=== PATIENT | male | born 1980 | race Caucasian/White ===

== ENCOUNTER 2020-12-27 09:02 | Emergency (ER) | payer MEDICARE, MEDICAID, SELFPAY ==
[2020-12-27 09:02] VITALS: BP 140/89; PULSE 75; RESP 18; TEMP 36.4; O2SAT 97; BMI 22.3
--- NOTE | 2020-12-27 09:30 | W.ED.ALCOHOL ---
HPI - Alcohol General: Chief Complaint: Alcohol Stated Complaint: DEPRESSION, ETOH Time Seen by Provider: 12/27/20 09:05 History of Present Illness: HPI narrative: 40-year-old male who was acutely intoxicated. Family called EMS had him brought in for depression and chronic alcohol use patient denies drinking regularly states he had 4 shots late last night none this morning. Clinically he has obvious signs of acute intoxication he is slurring his words is significant nystagmus. Family made comments to EMS about the patient needing to be evaluated for suicidal ideation. Patient denies this to EMS to the triage nurse to the staff nurse who is taking care of him as well as to myself. After conversation patient states he really does not need to or want to be seen for anything. See notes below. Associated symptoms: Deny abdominal pain, hematemesis, melena, nausea or vomiting Review of Systems Const: Denies: fever(s), chills, body aches, change in appetite, fatigue or malaise ENMT: Denies: throat pain, ear or mastoid pain, nasal discharge or nasal congestion Card: Denies: chest pain, edema, dyspnea on exertion or orthopnea Resp: Denies: dyspnea, productive cough or non-productive cough GI: Denies: abdominal pain, nausea, vomiting, hematemesis, coffee ground emesis, diarrhea, constipation, bloating, hematochezia or melena : Denies: flank pain, dysuria, urinary frequency or urinary urgency Skin/Breast: Denies: rash or pruritus Physical Exam Const: COMMON NORMALS: no acute distress GENERAL APPEARANCE: cooperative and comfortable ORIENTATION/CONSCIOUSNESS: Yes awake, Yes oriented to person, Yes oriented to place and Yes oriented to time HENMT: COMMON NORMALS: normocephalic, atraumatic and hearing grossly normal bilaterally HEAD & SCALP: normocephalic and atraumatic Eye: COMMON NORMALS: Equal, round and reactive pupils present, conjunctivae normal and no scleral icterus CONJUNCTIVA: Yes conjunctivae normal PUPIL: Yes Equal, round and reactive pupils present EOM: Yes Nystagmus present Nystagmus Noted: positive horizontal Neck/C-Spine: COMMON NORMALS: full ROM, no lymphadenopathy, supple and no JVD Lymph: LYMPHATIC: no lymphadenopathy noted and no lymphedema noted Resp: COMMON NORMALS: normal respiratory effort, No retractions, No use of accessory muscles and clear to auscultation bilaterally AUSCULTATION: clear to auscultation bilaterally Cardio: COMMON NORMALS: no JVD, regular rate, regular rhythm and No murmurs present (Cardio) RATE: regular rate RHYTHM: regular rhythm GI: COMMON NORMALS: Soft to palpation and No hepatosplenomegaly present AUSCULTATION: Yes normoactive bowel sounds PALPATION: Yes Soft to palpation, No Tenderness to palpation present (GI), No Guarding due to palpation present (GI) and Yes No hepatosplenomegaly present Extremity: COMMON NORMALS: normal to inspection, capillary refill normal, no clubbing, cyanosis or edema, no calf tenderness and no pedal edema Neuro: SENSORIUM/ORIENTATION: Yes oriented to person, Yes oriented to place and Yes oriented to time Skin: COMMON NORMALS: no rashes or lesions noted GENERAL SKIN EXAM: no rashes or lesions noted Course Vital Signs: Vital signs: Vital Signs Temperature 97.5 F L 12/27/20 09:02 Pulse Rate 79 12/27/20 09:31 Respiratory Rate 18 12/27/20 09:31 Blood Pressure 136/99 12/27/20 09:31 Pulse Oximetry 97 12/27/20 09:31 MDM - Alcohol MDM Narrative: Medical decision making narrative: Patient acutely intoxicated. However he denies any other problems he does only need further evaluation discussed with him for some time off or did do's at least a little bit of baseline lab work he says he does not feel it is really necessary prefer to go. He is quite polite about it but he does not want anything else done we will go ahead and discharge him home. Discharge Plan Discharge Patient Disposition: Home Clinical Impression: Alcoholic intoxication Condition: Stable Discharge Orders: Discharge ED (Routine); Ordered 12/27/20 Ordered By: Erasto Lentz Referrals: Reymundo Peters MD [Referring] - Discharge Diet: Usual diet Discharge Activity: Resume usual activity Activity Restrictions/Additional Instructions: Abstain from alcohol. Follow-up with your orthopedist and primary care doctor as previously planned. Coding Level of Care Code ED Final Armature Tester for Lenny Chapman
[2020-12-27 09:31] VITALS: BP 136/99; PULSE 79; RESP 18; O2SAT 97
== END 2020-12-27 09:31 | disposition home or self-care (01) ==
PROVIDERS: Emergency Provider Family Medicine
DX: F10.129 Alcohol abuse with intoxication, unspecified (principal); Y90.9 Presence of alcohol in blood, level not specified
CPT/HCPCS: 12345; 99281